=== PATIENT | male | born 1965 | race Caucasian/White ===

== ENCOUNTER 2017-03-06 19:36 | Emergency (ER) | payer BC ==
[~2017-03-06] VITALS: Ht 185.4 cm; Wt 100.0 kg
[2017-03-06 19:38] VITALS: BP 137/85; PULSE 72; RESP 16; TEMP 97.8; O2SAT 98
--- NOTE | 2017-03-06 20:24 | PD ---
Physical Exam Date Seen by Provider: Mar 06, 2017 Time Seen by Provider: 20:17 Narrative 51 YOWM C/O RASH FOR THE PAST 1 WEEK AGO. SEEN IN [place] YEST FOR THE SAME . GETTING WORSE. STARTED ON R ARM NOW ALL OVER HIS CHEST AND TRUNK. NO ITCHING. NO RECENT ILLNESS. VSS. PT AWAITING BED PLACEMENT. Data Data Last Documented VS Vital Signs Date Time Temp Pulse Resp B/P Pulse Ox O2 Delivery O2 Flow Rate FiO2 03/06/17 19:38 97.8 72 16 137/85 98 Room Air [facility] Medical Record Reviewed: Yes Supervised Visit with DENISE: Yes Fernando Harper Mar 06, 2017 20:23
[2017-03-06] MEDS ORDERED: METH4PAK PO (20:32)
[2017-03-06] MEDS ORDERED: KETOC200 PO (20:32)
--- NOTE | 2017-03-06 20:58 | PD ---
HPI Chief Complaint: Skin Problem Time Seen by Provider: 20:58 Travel History International Travel<30 days: No Contact w/Intl Traveler<30days: No Traveled to known affect area: No History of Present Illness HPI 51-year-old male presents to the emergency department for evaluation of rash. Patient states that for the past week he has had a dry erythematous rash to his bilateral axilla. States that he saw his doctor in [place] yesterday for evaluation of this rash and was started on a Medrol Dosepak, oral ketoconazole and topical ketoconazole. States that he has been taking these since yesterday but when he woke up this morning the rash had spread to his trunk. He denies any pruritus, fever, chills, nausea, vomiting, swelling of the lips or tongue. Denies any change in soaps or detergents. He does have a rash to his bilateral thighs and posterior knees that he states has been intermittent for many years. He is here because the rash is now covering his trunk as well. No other complaints. PFSH Past Medical History Medical History: Denies Significant Hx Diminished Hearing: No Tetanus Vaccination: < 5 Years Influenza Vaccination: No Past Surgical History Surgical History: No Previous Surgery Social History Alcohol Use: No Tobacco Use: Yes (SKOL) Substance Use: No Allergies-Medications (Allergen,Severity, Reaction): Coded Allergies: No Known Allergies (Unverified , 03/06/17) Reported Meds & Prescriptions Reported Meds & Active Scripts Active Reported Methylprednisolone Dosepak (Methylprednisolone) 4 Dspk 4 Mg PO DIRECTED Per Pharmacist Direction Ketoconazole 200 Mg Tab 200 Mg PO DAILY Review of Systems Except as stated in HPI: all other systems reviewed are Neg Physical Exam Narrative GENERAL: Well-nourished and well-developed pleasant male patient in no acute distress who is nontoxic appearing. SKIN: Warm and dry. There are erythematous rings to bilateral axilla. There is a lacy scattered erythematous rash to trunk. There is a nonspecific erythematous rash with dry skin to bilateral thighs and posterior knees. HEAD: Normocephalic and atraumatic. EYES: No injection, drainage, or hyphema noted. PERRLA. EOMI. ENT: No nasal drainage noted. Oropharynx is clear. NECK: Supple and the trachea is midline. CARDIOVASCULAR: Regular rate and rhythm. RESPIRATORY: Breath sounds are equal bilaterally with no accessory muscle use, wheezing, rhonchi, or crackles. GASTROINTESTINAL: Abdomen is soft, non-tender, and nondistended. MUSCULOSKELETAL: No obvious deformities, swelling, cyanosis, or ecchymosis is present throughout the upper and lower extremities. Patient has full range of motion without any signs of neurovascular compromise. NEUROLOGICAL: Awake, alert, and oriented. Normal speech and gait. Cranial nerves are grossly intact. Data Data Last Documented VS Vital Signs Date Time Temp Pulse Resp B/P Pulse Ox O2 Delivery O2 Flow Rate FiO2 03/06/17 20:28 18 03/06/17 19:38 97.8 72 137/85 98 Room Air Orders Blood Glucose (03/06/17 20:58) MDM Medical Decision Making Medical Screen Exam Complete: Yes Emergency Medical Condition: Yes Differential Diagnosis Fungal rash versus allergic reaction versus dermatitis versus viral exanthem versus other Narrative Course 51-year-old male presents to the emergency department for evaluation of rash to axilla and trunk. Patient is afebrile, vital signs are stable. Patient appears well overall. He's had the axillary rash for the past week and was seen by his doctor yesterday and started on oral ketoconazole and Medrol Dosepak. I discussed the case with my attending physician who also evaluated the patient and believes that the patient's axillary rashes fungal and the rash on his trunk is likely secondary to adverse medication reaction. The patient is advised to stop taking the oral ketoconazole and to take the Medrol Dosepak and apply the ketoconazole cream. He is advised to follow-up with a offensive coordinator as an outpatient. Patient verbalizes understanding and agreement with treatment plan. I discussed the case with my attending physician Dr. Ceballos who is aware of the patients history, physical examination findings, and treatment plan. Diagnosis Primary Impression: Rash and nonspecific skin eruption Referrals: Ramp Manager Primary Care Physician Patient Instructions: General Instructions Additional Instructions: Stop taking oral ketoconazole. Apply the topical cream as prescribed and continue steroids. Follow-up with your Primary Care Physician. Return to the ED for any acute worsening of symptoms. Med/Other Pt SpecificInfo: No Change to Meds Disposition: 01 DISCHARGE HOME Condition: Stable Keila Anaya Mar 06, 2017 20:58
--- NOTE | 2017-03-06 22:35 | PD ---
Data Data Last Documented VS Vital Signs Date Time Temp Pulse Resp B/P Pulse Ox O2 Delivery O2 Flow Rate FiO2 03/06/17 20:28 18 03/06/17 19:38 97.8 72 137/85 98 Room Air Orders Blood Glucose (03/06/17 20:58) MDM Supervised Visit with DENISE: Yes Narrative Course The history, exam, and medical decision-making in the associated mid-level provider note were completed with my assistance. I reviewed and agree with the findings presented. I attest that I had a [id number] encounter with the patient on the same day, and personally performed and documented my assessment and findings in the medical record. *My assessment and Findings: Is a 51-year-old man presents emergent from complaining of rash. He was treated for Jojo intertrigo underneath the axilla with a azole cream and oral ketoconazole. Since then he develop spreading rash on his trunk and flank. The rash axilla seems pretty clearly to be candidal. The rash on the flank and trunk that about since yesterday since to be a reticulated lacy blanching rash more suggestive of drug rash or viral exanthem. I think drug rash makes more sense. I recommended he stop the oral antifungal medicine, continue with the cream, expect it'll take several weeks to really get rid of the Jojo. He can continue the oral steroid at his primary doctor prescribed , and Benadryl as needed for itching. He'll return for any worsening symptoms. Diagnosis Primary Impression: Rash and nonspecific skin eruption Referrals: [facility] [employer] [facility] Primary Care Physician Patient Instructions: General Instructions Departure Forms: Tests/Procedures Additional Instruction: Stop taking oral ketoconazole. Apply the topical cream as prescribed and continue steroids. Follow-up with your Primary Care Physician. Return to the ED for any acute worsening of symptoms. Disposition: 01 DISCHARGE HOME Condition: Stable Jakob Ceballos MD Mar 06, 2017 22:35
== END 2017-03-06 22:24 | disposition home or self-care (01) ==
LOC: NEPC 19:36
DX: R21 Rash and other nonspecific skin eruption (principal); Z72.0 Tobacco use
CPT/HCPCS: 99282